=== PATIENT | female | born 1990 | race African-American/Black ===

== ENCOUNTER 2017-01-19 19:43 | Emergency (ER) | payer OTHER ==
[~2017-01-19 19:43] MED LIST: ACETAMINOPHEN PO; ALLERGY10 M2 PO; BACLOFEN10 MG PO; BENADRYL25 M1 PO; ESCITALOPRAM OX20 MG PO; FLEXERIL10 MG PO; FLUTICASONE PRO16 GM; GABAPENTIN300 M2 PO; HYDROCHLOROTHIA25 MG PO; HYDROXYZINE PAM25 M1 PO; KLONOPIN1 MG PO; MELATONIN5 M1 PO; MOBIC PO; MONTELUKAST SOD10 MG PO; NAPROXEN PO; PHENERGAN25 MG PO; PRILOSEC40 MG PO; TYL325 PO; ZANAFLEX4 M1 PO; ZYRTEC10 M2 PO
[2017-01-19 19:54] LABS: BASOPHIL# 0.1 X10e3 (0-0.3); BASOPHIL% 1.4 % (0-2.5); EOSINOPHIL% 1.2 % (0.0-7.0); HEMATOCRIT 39.7 % (35.0-45.0); LYMPHOCYTE# 1.9 X10e3 (1.0-3.5); LYMPHOCYTE% 49.8 % (17.0-45.0); MEAN CORPUSCULAR HEMOGLOBIN 27.9 PG (28-34); MEAN CORPUSCULAR HGB CONC 32.8 g/dL (30-36); MEAN PLATELET VOLUME 8.1 FL (6.5-11.5); MONOCYTE# 0.3 X10e3 (0-1.0); MONOCYTE% 8.3 % (3.0-12.0); NEUTROPHIL# 1.5 X10e3 (1.5-7.1); NEUTROPHIL% 39.3 % (40-75); PLATELET COUNT 347 X10e3 (140-420); RED BLOOD COUNT 4.67 X10e (3.90-5.30); RED CELL DISTRIBUTION WIDTH 14.3 % (11.0-15.5); WHITE BLOOD COUNT 3.7 X10e3 (4.0-10.5)
[2017-01-19 19:56] LABS: DIFF IND NO
[2017-01-19 19:57] LABS: URINE SOURCE CLEAN CATCH
[2017-01-19 20:19] LABS: ALBUMIN SERUM 4.3 g/dL (3.5-5.0); ALKALINE PHOSPHATASE 66 U/L (32-92); ALT (SGPT) 21 U/L (10-40); AMYLASE 18 U/L (0-46); AST (SGOT) 25 U/L (10-42); BILIRUBIN, DIRECT 0.1 mg/dL (0.0-0.2); BILIRUBIN,INDIRECT 0.8 mg/dL (0.0-0.9); BILIRUBIN,TOTAL 0.9 mg/dL (0.2-2.0); BLOOD UREA NITROGEN 21 mg/dL (9-23); CALCIUM SERUM 9.2 mg/dL (8.4-10.2); CARBON DIOXIDE 21 mmol/L (22-31); CHLORIDE 105 mmol/L (100-111); CREATININE SERUM 0.7 mg/dL (0.6-1.4); GLOM FILT RATE Estimated ABOVE60 mL/min (>60); GLUCOSE FASTING 93 mg/dL (70-110); LIPASE 24 U/L (22-51); POTASSIUM 3.8 mmol/L (3.5-5.1); PROTEIN TOTAL SERUM 7.4 g/dL (6.0-8.3); SODIUM 136 mmol/L (135-145)
[2017-01-19 21:35] LABS: URINE BILIRUBIN NEG (NEG); URINE BLOOD NEG (NEG); URINE GLUCOSE NORM (NORM); URINE KETONE NEG (NEG); URINE LEUKOCYTE ESTERASE NEG (NEG); URINE NITRATE NEG (NEG); URINE PROTEIN 1+ (NEG); URINE SPECIFIC GRAVITY 1.015 (1.003-1.035); URINE UROBILINOGEN 4 MG/DL (NORM)
[2017-01-19 21:38] LABS: URINE APPEARANCE CLOUDY; URINE COLOR YELLOW
[2017-01-19 21:50] LABS: CULTURE INDICATED? NO
== END 2017-01-19 23:00 | disposition home or self-care (01) ==
LOC: CED 19:43
PROVIDERS: Emergency Medicine
DX: R11.10 Vomiting, unspecified (principal); I10 Essential (primary) hypertension; K21.9 Gastro-esophageal reflux disease without esophagitis; G43.909 Migraine, unspecified, not intractable, without status migrainosus
CPT/HCPCS: 36415; 80048; 80076; 81003; 82150; 83690; 84703; 85025; 96361; 96374; 99284; J2405